=== PATIENT | male | born 1950 | race Caucasian/White ===

== ENCOUNTER 2022-07-26 07:45 | Outpatient (CLI) | payer MEDICARE, SELFPAY ==
--- NOTE | ~2022-07-26 | US_ITS ---
Limited Abdominal Sonogram: Real-time sonographic imaging of the right upper quadrant was performed. Clinical History: Abnormal LFTs Findings: The liver appears mildly echogenic, with no evidence of mass lesion or bile duct dilatatio n. Main portal vein demonstrates normal direction of flow. The gallbladder is well distended, and cassidy ears normal with no evidence of gallstone or wall thickening. The common bile duct measures 4 mm. Th e visualized pancreas, aorta, and IVC are unremarkable. Impression: Diffuse fatty infiltration of the liver. Reviewed, dictated and finalized at location M. Impression: Diffuse fatty infiltration of the liver.
== END 2022-07-26 07:46 | disposition home or self-care (01) ==
LOC: CHSIMG 07:49
PROVIDERS: PCP Family Medicine; Visit Provider Family Medicine
DX: R74.01 Elevation of levels of liver transaminase levels (principal); K76.0 Fatty (change of) liver, not elsewhere classified
CPT/HCPCS: 76705

== ENCOUNTER 2024-03-23 23:09 | Emergency (ER) | payer MEDICARE, SELFPAY ==
[2024-03-23 23:10] VITALS: BP 184/102; PULSE 87; RESP 20; TEMP 36.6; O2SAT 97
--- NOTE | 2024-03-23 23:27 | ED.DENTAL ---
HPI - Dental/Oral General Chief complaint: Dental/Oral Stated complaint: R upper tooth pain Time Seen by Provider: 03/23/24 23:14 Source: patient Mode of arrival: ambulatory Limitations: no limitations History of Present Illness HPI Narrative: 73-year-old white male complains of toothache and swelling of his right cheek below his eye since yesterday. He said he had a tooth break off 3 weeks ago he is scheduled to have his right upper teeth removed because of having ground his teeth down. Exposed to have the surgery at the dentist in 3 days. Just has a little mild tenderness in his right cheek. Otherwise eating drinking voiding and stooling fine without any fever cough runny nose sore throat any other swelling besides his right cheek. He seeing voiding walking talking and otherwise doing fine without any rash or any other complaints. Related Data Allergies Allergy/AdvReac Type Severity Reaction Status Date / Time Penicillins Allergy Intermediate Unknown Verified 02/22/24 08:02 [id number]-[id number]-LsW Reductase AdvReac Severe Muscle Pain Verified 02/22/24 08:02 Inhibitor Review of Systems Review of Systems: All systems reviewed & are unremarkable except as noted in HPI and below PMFSH Past Medical History Medical History (Updated 03/23/24 @ 23:37 by Sandro Vizcaino MD) GERD (gastroesophageal reflux disease) Hyperlipidemia Hypertension Family History Family History Mother Family history of type 2 diabetes mellitus Father Hypertension Social History Social History Smoking status: Never smoker Lack of Transportation: No Lack of Food: Never True Current Housing: I Have Housing Concerned About Future Housing: No Difficulty Paying Gas/Electric Bills: No Difficulty Paying for Meds: No Currently Unemployed: No Education: High School Diploma/GED Difficulty w/ Childcare or Family Care: No Exam Narrative: White male patient with no apparent distress.? Head normocephalic, atraumatic.? Eyes conjunctiva pink sclera nonicteric.? Extraocular movements are intact.? Ears externally normal.? Oropharynx is clear with moist mucous membranes without exudates.? His teeth are all ground down to the gumline of his right upper teeth with mild swelling of the gum. Is mild right cheek swelling and tenderness. Neck is supple nontender no lymphadenopathy.? ? Lungs are clear.? Heart is regular rate and rhythm without murmurs gallops or rubs.? ? Skin is warm and dry without rashes or lesions.? Neurological patient is alert and oriented x4.? Motor and sensory grossly intact.? Gait is normal. Course Vital Signs Vital signs: Vital Signs Temperature 36.6 C 03/23/24 23:10 Pulse Rate 87 03/23/24 23:10 Respiratory Rate 20 03/23/24 23:10 Blood Pressure 184/102 H 03/23/24 23:10 Pulse Oximetry 97 03/23/24 23:10 Oxygen Delivery Room Air 03/23/24 23:10 Temperature 36.6 C 03/23/24 23:10 Pulse Rate 87 03/23/24 23:10 Respiratory Rate 20 03/23/24 23:10 Blood Pressure 184/102 H 03/23/24 23:10 Pulse Oximetry 97 03/23/24 23:10 Oxygen Delivery Room Air 03/23/24 23:10 MDM - Dental/Oral MDM Narrative Medical decision making narrative: Patient placed in room: One ? History and physical was performed. Independent Historian: patient External Source Review: Differential Dx includes but not limited to: dental abscess dental caries Medications were Reviewed: home meds reviewed Medications given: clindamycin 300 mg Independently Interpreted by me: Shared decision Making: evaluation discussed with the patient all questions were asked and answered patient agreed with the plan. He would take clindamycin 150 mg Q 6 hours for 10 days follow up with his dentist tomorrow and tell that he was here. He understands the dentist may not want to do surgery on Sunday in 2 days Social Situation Impacting Patients Care: Discussed with Dr. MCGRATH DIAGNOSIS: dental abscess DISPOSITION : discharge home CONDITION AT DISCHARGE: stable Discharge Plan Discharge Clinical Impression: Abscess, dental Patient Disposition: Home, Self-Care Condition: Stable Instructions: Antibiotic Form, Dental Abscess (ED) Additional Instructions: clindamycin 150 mg every 6 hours for 10 days. Follow up with her dentist tomorrow morning discussed whether he should have surgery on your teeth in 2 days as already scheduled. Tylenol are or ibuprofen as needed for pain. Return if you get worse or develops any new symptoms. take your lisinopril when you get home. Prescriptions: New clindamycin HCl 150 mg capsule 150 mg PO Q6H 10 Days Qty: 40 0RF No Action lisinopril 20 mg tablet See Rx Instructions .ROUTE .COMPLEX Qty: 90 3RF Dose Instruction: TAKE 1 TABLET BY MOUTH DAILY Rx Instructions: TAKE 1 TABLET BY MOUTH DAILY omeprazole 40 mg capsule,delayed release(DR/EC) See Rx Instructions .ROUTE .COMPLEX Qty: 90 3RF Dose Instruction: TAKE 1 CAPSULE BY MOUTH DAILY Rx Instructions: TAKE 1 CAPSULE BY MOUTH DAILY Follow-up/Referrals: Leonard Quezada DO [Primary Care Provider] - Time of Disposition: 23:36
[2024-03-23] MEDS: CLINDAMYCIN HCL 150 MG CAP 300 MG PO (23:32)
[2024-03-23 23:43] VITALS: BP 172/100; PULSE 85; RESP 18; TEMP 36.6; O2SAT 97
== END 2024-03-23 23:43 | disposition home or self-care (01) ==
PROVIDERS: Emergency Provider Emergency Medicine; PCP Family Medicine
DX: K04.7 Periapical abscess without sinus (principal); I10 Essential (primary) hypertension
CPT/HCPCS: 99283; A9270